=== PATIENT | male | born 1995 | race Caucasian/White ===

== ENCOUNTER 2022-09-02 08:48 | Emergency (ER) | payer BC, SELFPAY ==
[2022-09-02 09:02] VITALS: BP 105/66; PULSE 80; TEMP 36.4; O2SAT 100; BMI 25.0
[2022-09-02 09:06] VITALS: O2SAT 100
--- NOTE | 2022-09-02 09:16 | ED.GENADULT ---
HPI - General Adult General Date Seen: 09/02/22 Chief complaint: Jaw Injury/Pain Stated complaint: Lt side face pain Time Seen by Provider: 09/02/22 09:14 Source: patient History of Present Illness HPI narrative: Patient presents for evaluation of several days of left jaw pain with chewing. He does not have pain at rest. No swelling or redness. No trauma. No dental pain. No ear pain. He became concerned that something might be wrong, no specific concerns. Does not grind his teeth that he is aware of, no history of similar pain. 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 Routine exercise. Current everyday smoker. Alcohol 20 servings per month. No illicit drug use. Smoking Status: Current every day smoker What tobacco products do you use: cigarettes How often do you have a drink containing alcohol: monthly or less How many standard drinks containing alcohol do you have on a typical day: 1 or 2 How often do you have six or more drinks on one occasion: Never AUDIT-C Alcohol total score: 1 Non-prescribed substance use: denies use Exam Narrative: Exam Narrative: Vital signs reviewed In general, an alert, nontoxic male. Voice is normal. Head: Normocephalic atraumatic. Eyes: Sclera clear. ENT: TMs normal bilaterally. Jaws normal in appearance. Dental exam shows multiple metal fillings, no evidence of abscess or obvious caries. Dentition is nontender to palpation. He does have some mild tenderness of TMJ on the left, no obvious clicking, full range of motion no trismus. Neck: No adenopathy or other masses. No stridor. Skin: Warm and dry, no rashes, erythema, warmth. Const: Vital Signs, click to edit/add: Vital Signs - 24 hr 09/02/22 09:02 Temperature 97.5 F L Pulse Rate [Pulse Oximeter] 80 Blood Pressure [Ri ght Upper Arm] 105/66 Pulse Oximetry 100 Oxygen Delivery Me thod Room Air Documenting provider has reviewed patient's vital signs: yes Course Course Hospital Course: Discussed with him I do not see any red flags for serious illness here. I think symptoms are likely related to TMJ dysfunction. Recommended dental follow-up for further evaluation, in the meantime, ibuprofen 400 mg 3 times daily for pain and inflammation. Return for significant worsening, new symptoms such as fever, redness, swelling. Vital Signs Vital signs: Initial Vital Signs Temperature 97.5 F L 09/02/22 09:02 Temperature Source Temporal Artery Scan 09/02/22 09:02 Pulse Rate 80 09/02/22 09:02 Blood Pressure 105/66 09/02/22 09:02 Blood Pressure Mean 79 09/02/22 09:02 Blood Pressure Position Sitting 09/02/22 09:02 Pulse Oximetry 100 09/02/22 09:02 Oxygen Delivery Method 09/02/22 09:02 Vital Signs Temperature 97.5 F L 09/02/22 09:02 Pulse Rate 80 09/02/22 09:02 Blood Pressure 105/66 09/02/22 09:02 Pulse Oximetry 100 09/02/22 09:02 Oxygen Delivery Method 09/02/22 09:02 Temperature 97.5 F L 09/02/22 09:02 Pulse Rate 80 09/02/22 09:02 Blood Pressure 105/66 09/02/22 09:02 Pulse Oximetry 100 09/02/22 09:02 Oxygen Delivery Method 09/02/22 09:02 Discharge Plan Discharge Clinical Impression: TMJ arthralgia Patient Disposition: Home, Self-Care Condition: Stable Instructions: Temporomandibular Disorder (ED) Additional Instructions: Ibuprofen 400 mg 3 times daily with food. Dental follow-up for re-evaluation in the next couple of weeks. Return for any new symptoms such as redness, swelling, fever. Prescriptions: No Action No Known Home Medications Follow Up/Referrals: Radha Agudelo, [employer] WORKER, EQUIPMENT MECHANIC SPECIALIST [Primary Care Provider] - Stand Alone Forms: [facility] Info Instructions
== END 2022-09-02 09:43 | disposition home or self-care (01) ==
LOC: ED 09:39
PROVIDERS: Emergency Provider Emergency Medicine
DX: M26.629 Arthralgia of temporomandibular joint, unspecified side (principal)
CPT/HCPCS: 99282; 99283